=== PATIENT | male | born 1950 | race Caucasian/White ===

== ENCOUNTER → 2017-04-17 | Outpatient (REF) | payer BC ==
[~2017-04-17] MED LIST: ASPI-715 PO; DUT0.5 PO; MULT-775 PO; PRA20 PO; TADA2.5T3 PO; TURM500C4 PO
== END ==
LOC: ZZSENDIN 17:16
PROVIDERS: ATTEND Urology
DX: R31.29 Other microscopic hematuria (principal); N39.0 Urinary tract infection, site not specified
CPT/HCPCS: 81001; 87088

== ENCOUNTER → 2017-05-01 | Outpatient (CLI) | payer BC ==
[~2017-05-01] MED LIST changes: +IOPAMIDOL 76% 100 ML INFUS BTL 0 ML ONE; +IOPAMIDOL 76% 150 ML INFUS BTL 150 ML ONE; +NS 0.9% 150 ML BAG 150 ML ONE
--- NOTE | 2017-05-01 10:33 | RADIOLOGY IMAGING REPORT ---
FACILITY: [facility] [place] PATIENT NAME: Reji Hernandez : 1950 MR: [id number] V: [id number] EXAM DATE: ORDERING PHYSICIAN: ISAAK LARKIN TECHNOLOGIST: Location: [facility] Patient: Reji Hernandez : 1950 Visit/Account:[id number] Date of Sevice: 05/01/2017 ABDOMEN/PELVIS W/WO CONTRAST EXAMINATION: CT Abdomen W/O Contrast CT Abdomen W/ Contrast CT Pelvis W/O Contrast CT Pelvis W/ Contrast HISTORY: Gross hematuria, dysuria TECHNIQUE: CT Urogram Protocol: The patient received preliminary hydration. A non-intravenous contrast enhanced spiral scan was obtained of the kidneys, ureters and bladder. Pos t intravenous contrast enhanced spiral scan of the kidneys, ureters and bladder was obtained between 7 and 8 minutes post injection in the supine position. One of the following dose optimization techniques was utilized in the performance of this exam: Autom ated exposure control; adjustment of the mA and/or kV according to the patient's size; or use of an i terative reconstruction technique. Specific details can be referenced in the facility's radiology C T exam operational policy. Contrast: 125 mL of IV [id number] COMPARISON STUDIES: None FINDINGS: Please note that this examination was tailored for detailed assessment of the kidneys, ureters and bl adder. Portions of the upper abdominal viscera may not be included. Kidneys: There are no visible radiopaque renal or ureteral stones. Small focus of renal cortical sc arring posterior midpole left kidney is noted. Small benign right renal cortical cyst midpole measur es 6 mm. No concerning renal masses. Ureters: Single patent ureters are documented the bladder. Bladder: Slightly trabeculated but no definable lesion. Liver / biliary: There is some fatty infiltration of liver. 2.1 x 1.1 cm enhancing lesion segment 7 of liver image 22 is noted possibly a flash fill hemangioma. 6 mm hypodensity segment 7 of liver image 29 is noted. 9 mm enhancing lesion segment 2 of liver is possibly a small hemangioma. Other tiny indeterminate hy podensities are noted which all may represent cysts or small hemangiomas. Pancreas: Negative Spleen: Negative Adrenal glands: Negative Pelvic structures: Prostate gland is enlarged measures 7 x 6.2 x 6.1 cm. There are bilateral varicoceles in the upper scrotum. Bowel / peritoneum / mesentery: Colonic diverticulosis is noted. Vessels: Iliac vessels are mildly ectatic. Musculoskeletal / Body wall: Degenerative changes are noted in the spine. 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 Lymph node assessment: Slightly prominent right external iliac/prevascular lymph node image 110 measu res 1.3 x 2.8 cm of uncertain significance. Lower chest: Negative IMPRESSION: 1. A source for hematuria is not forthcoming on the current study. No visible radiopaque renal or ureteral stones. No concerning renal or urothelial masses. 2. Prostate gland is enlarged measures 7 x 6.2 x 6.1 cm. There is some mild bladder trabeculation. 3. Slightly prominent right external iliac/prevascular lymph node measuring 1.3 x 0.8 cm. 3. Several indeterminate liver lesions are which may represent benign hemangiomas. Recommend a live r MRI with and without contrast for characterization. Report Dictated By: Eric Vargas MD at 05/01/2017 10:12 AM Report E-Signed By: Eric Vargas MD at 05/01/2017 10:28 AM WSN:[id number]
== END ==
LOC: CT 01:52
PROVIDERS: ATTEND Urology
DX: N28.1 Cyst of kidney, acquired (principal); K76.0 Fatty (change of) liver, not elsewhere classified; N40.0 Benign prostatic hyperplasia without lower urinary tract symptoms; I86.1 Scrotal varices; K57.32 Diverticulitis of large intestine without perforation or abscess without bleeding
CPT/HCPCS: 74178; Q9967

== ENCOUNTER → 2017-05-02 | Outpatient (REF) | payer BC ==
[~2017-05-02] MED LIST changes: -IOPAMIDOL 76% 100 ML INFUS BTL 0 ML ONE; -IOPAMIDOL 76% 150 ML INFUS BTL 150 ML ONE; -NS 0.9% 150 ML BAG 150 ML ONE
== END ==
LOC: ZZSENDIN 13:25
PROVIDERS: ATTEND Urology
DX: R31.0 Gross hematuria (principal)
CPT/HCPCS: 88108

== ENCOUNTER → 2017-05-29 | Outpatient (REF) | payer BC | LOC: ZZSENDIN 12:00 | PROVIDERS: ATTEND Urology | DX: N41.1 Chronic prostatitis (principal); N41.0 Acute prostatitis | CPT/HCPCS: 88305; 88344 ==